=== PATIENT | female | born 1975 | race Caucasian/White ===

== ENCOUNTER 2016-09-02 21:38 | Observation (INO) | payer MEDICAID ==
[~2016-09-02] VITALS: Ht 162.6 cm; Wt 95.5 kg
[~2016-09-02 21:38] MED LIST: DEMEROL50 MG PO; ENDOCET 10-3251 TAB PO; HYDROCODON-ACE1 EAC7 PO; IBUPROFEN400 MG PO; PHENERGAN25 M1 PO
[2016-09-02 23:23] LABS: BASOPHILS 1.2 % (0-2); EOSINOPHILS 4.8 % (0-7); HEMATOCRIT 42.2 % (36.0-48.0); HEMOGLOBIN 14.1 g/dL (12-16); IMMATURE GRANULOCYTES 0.1 % (0-5); LYMPHOCYTES 40.5 % (15-50); MCHC 33.4 g/dL (31.0-37.0); MCV 92.7 fL (80.0-100.0); MEAN PLATELET VOLUME 12.5 fL (7.4-10.4); MONOCYTES 11.4 % (2-11); PLATELET COUNT 198 10x3/uL (130-400); RBC 4.55 10x6/uL (4.00-5.40); RDW 12.3 % (11.5-14.5); WBC 6.9 10x3/uL (4.8-10.8)
[2016-09-02 23:33] LABS: CALC OSMOLALITY 277 mosm/kg (275-300); CALCIUM 8.9 mg/dL (8.5-10.1); CARBON DIOXIDE 26.9 mmol/L (21.0-32.0); CHLORIDE - SERUM 106 mmol/L (98-107); CREATININE - SERUM 0.7 mg/dL (0.6-1.3); GLUCOSE 108 mg/dL (74-106); POTASSIUM - SERUM 4.9 mmol/L (3.5-5.1); SODIUM 140 mmol/L (136-145); UREA NITROGEN 7 mg/dL (7-18); eGFR NON AFRICAN AMERICAN > 90 mL/min (90-120)
[2016-09-03 00:21] VITALS: BP 143/93; Ht 162.6 cm; Wt 95.5 kg
--- NOTE | 2016-09-03 02:00 | NUR ---
PT IN BED WITH NO DISTRESS. RESPIRATIONS EVEN AND UNLABORED. SIDE RAILS X 2. BED LOW. CALL LIGHT IN REACH.
[2016-09-03 04:00] VITALS: BP 129/84
[2016-09-03 08:33] VITALS: BP 125/89
[2016-09-03 09:52] LABS: EOSINOPHILS 4.5 % (0-7); HEMATOCRIT 41.9 % (36.0-48.0); HEMOGLOBIN 13.9 g/dL (12-16); IMMATURE GRANULOCYTES 0.1 % (0-5); LYMPHOCYTES 22.5 % (15-50); MCHC 33.2 g/dL (31.0-37.0); MCV 93.5 fL (80.0-100.0); MEAN PLATELET VOLUME 12.2 fL (7.4-10.4); MONOCYTES 8.4 % (2-11); NEUTROPHILS 63.5 % (40-80); PLATELET COUNT 194 10x3/uL (130-400); RBC 4.48 10x6/uL (4.00-5.40); RDW 12.4 % (11.5-14.5)
[2016-09-03 10:15] LABS: ALBUMIN 3.6 g/dL (3.4-5.0); ANION GAP 11.1 mmol/L (8-16); BILIRUBIN - TOTAL 0.4 mg/dL (0.2-1.3); CALCIUM 8.4 mg/dL (8.5-10.1); CARBON DIOXIDE 27.7 mmol/L (21.0-32.0); PROTEIN - SERUM 7.2 g/dL (6.4-8.2)
[2016-09-03 10:16] LABS: CREATININE - SERUM 0.9 mg/dL (0.6-1.3); POTASSIUM - SERUM 3.8 mmol/L (3.5-5.1)
[2016-09-03 13:11] VITALS: BP 148/78
[2016-09-03 16:14] VITALS: BP 125/67
[2016-09-03 19:00] VITALS: BP 132/77
--- NOTE | 2016-09-03 20:00 | NUR ---
ASSESSMENT PER FLOWSHEET. IV PATENT LEFT AC SALINE LOCKED. ALERT/ORIENTED X3.HOB UP 30 DEGREES SR UP X2 CALL LIGHT WITHIN REACH.
--- NOTE | 2016-09-03 21:15 | NUR ---
MEDS GIVEN PER MAR.
--- NOTE | 2016-09-03 22:40 | NUR ---
C/O PAIN #10 TO LEFT LOWER ABDOMEN AND HEAD. STATES FEELS LIKE A KNIFE STABBING. DILAUDID 0.5MG IVP GIVEN FOR PAIN CONTROL.
[2016-09-04] VITALS: BP 118/79
--- NOTE | 2016-09-04 | NUR ---
EYES CLOSED RESPIRATIONS WITH EASE AND UNLABORED.
--- NOTE | 2016-09-04 03:44 | NUR ---
RESTING QUIETLY DENIES NEEDS AT THIS TIME.
[2016-09-04 04:00] VITALS: BP 110/77
[2016-09-04 06:03] LABS: BASOPHILS 0.7 % (0-2); EOSINOPHILS 5.5 % (0-7); HEMATOCRIT 42.7 % (36.0-48.0); HEMOGLOBIN 14.2 g/dL (12-16); IMMATURE GRANULOCYTES 0.1 % (0-5); LYMPHOCYTES 26.3 % (15-50); MCH 30.8 pg (26.0-34.0); MCHC 33.3 g/dL (31.0-37.0); MCV 92.6 fL (80.0-100.0); MEAN PLATELET VOLUME 12.8 fL (7.4-10.4); MONOCYTES 10.2 % (2-11); NEUTROPHILS 57.2 % (40-80); PLATELET COUNT 199 10x3/uL (130-400); RBC 4.61 10x6/uL (4.00-5.40); RDW 12.4 % (11.5-14.5); WBC 7.5 10x3/uL (4.8-10.8)
[2016-09-04 06:48] LABS: ALBUMIN 3.5 g/dL (3.4-5.0); ALKALINE PHOSPHATASE 60 U/L (46-116); ALT (SGPT) 17 U/L (10-68); CALC OSMOLALITY 275 mosm/kg (275-300); CALCIUM 8.4 mg/dL (8.5-10.1); CARBON DIOXIDE 26.4 mmol/L (21.0-32.0); CHLORIDE - SERUM 102 mmol/L (98-107); CREATININE - SERUM 0.8 mg/dL (0.6-1.3); GLUCOSE 95 mg/dL (74-106); POTASSIUM - SERUM 3.7 mmol/L (3.5-5.1); PROTEIN - SERUM 7.1 g/dL (6.4-8.2); SODIUM 139 mmol/L (136-145); UREA NITROGEN 6 mg/dL (7-18); eGFR NON AFRICAN AMERICAN 84 mL/min (90-120)
[2016-09-04 09:03] VITALS: BP 129/80
--- NOTE | 2016-09-04 09:07 | NUR ---
SCHEDULED MEDICATIONS ADMINISTERED AT THIS TIME. ASSESSMENT PERFORMED PER FLOWSHEET. IV TO LEFT AC TENDER, BUT PATENT. PT DENIES NEEDS AT THIS TIME. WILL CONTINUE WITH PLAN OF CARE.
[2016-09-04 12:16] VITALS: BP 124/70
--- NOTE | 2016-09-04 12:30 | NUR ---
1,000 ML SOAP SUDS ENEMA ADMINISTERED WITH RETURN OF BROWN LIQUID. WILL REPEAT.
--- NOTE | 2016-09-04 13:00 | NUR ---
700ML OF SOAP SUDS ENEMA ADMINISTERED AT THIS TIME WITH RETURN OF BROWN LIQUID WITH SMALL STOOL PARTICLES. WILL REPEAT ENEMA.
--- NOTE | 2016-09-04 13:10 | NUR ---
REFUSED THIRD ENEMA AND WOULD LIKE TO D/C HOME. IV TO LEFT AC D/C WITH CATH TIP INTACT. WILL WAIT ON HUSBANDS ARRIVAL TO D/C.
--- NOTE | 2016-09-04 14:30 | NUR ---
D/C PAPERWORK REVIEWED WITH PT BY KATYA JONES AT THIS TIME. DENIES QUESTIONS OR CONCERNS. D/C HOME WITH .
== END 2016-09-04 14:30 | disposition home or self-care (01) ==
LOC: D.ER 21:38 → D.MS 23:01 → OBSVTIME 23:01 → D.MS 23:01
PROVIDERS: Nurse Practitioner Acute Care; ADMIT Family Medicine
DX: K59.00 Constipation, unspecified (principal)

== ENCOUNTER 2017-08-01 20:21 | Emergency (ER) | payer MEDICAID ==
[2016-09-03 00:21] VITALS: BMI 36.1
[2017-08-01 21:06] LABS: BASOPHILS 0.4 % (0-2); EOSINOPHILS 1.3 % (0-7); HEMATOCRIT 40.2 % (36.0-48.0); IMMATURE GRANULOCYTES 0.2 % (0-5); LYMPHOCYTES 21.1 % (15-50); MCH 32.1 pg (26.0-34.0); MCHC 34.8 g/dL (31.0-37.0); MCV 92.2 fL (80.0-100.0); MEAN PLATELET VOLUME 11.1 fL (7.4-10.4); MONOCYTES 6.5 % (2-11); NEUTROPHILS 70.5 % (40-80); RBC 4.36 10x6/uL (4.00-5.40); RDW 12.7 % (11.5-14.5)
[2017-08-01 21:08] LABS: APPEARANCE CLEAR (CLEAR); BILIRUBIN NEGATIVE (NEGATIVE); COLOR YELLOW (YELLOW); GLUCOSE NEGATIVE (NEGATIVE); KETONE NEGATIVE (NEGATIVE); NITRITE NEGATIVE (NEGATIVE); PROTEIN NEGATIVE (NEGATIVE); SPECIFIC GRAVITY 1.015 (1.005-1.020); UROBILINOGEN NORMAL (NORMAL)
[2017-08-01 21:09] LABS: PLATELET COUNT 288 10x3/uL (130-400)
[2017-08-01 21:23] LABS: HCG SERUM NEGATIVE (NEGATIVE)
[2017-10-01] MEDS ORDERED: ATIVAN1 MG PO (12:03)
[2017-10-01] MEDS ORDERED: PROZAC20 MG PO (12:03)
[2017-10-01] MEDS ORDERED: ADDERALL 20 MG20 M1 PO (12:04)
== END 2017-08-01 23:00 | disposition home or self-care (01) ==
LOC: D.ER 20:21
PROVIDERS: Emergency Medicine
DX: R10.2 Pelvic and perineal pain (principal)

== ENCOUNTER 2017-09-09 07:25 | Emergency (ER) | payer MEDICAID ==
[2016-09-03 00:21] VITALS: BMI 36.1
[2017-09-09 08:07] LABS: BASOPHILS 0.6 % (0-2); EOSINOPHILS 2.2 % (0-7); HEMATOCRIT 38.4 % (36.0-48.0); HEMOGLOBIN 13.5 g/dL (12-16); IMMATURE GRANULOCYTES 0.2 % (0-5); LYMPHOCYTES 24.2 % (15-50); MCH 32.4 pg (26.0-34.0); MCHC 35.2 g/dL (31.0-37.0); MCV 92.1 fL (80.0-100.0); MEAN PLATELET VOLUME 11.5 fL (7.4-10.4); MONOCYTES 9.8 % (2-11); RBC 4.17 10x6/uL (4.00-5.40); RDW 13.7 % (11.5-14.5); WBC 6.5 10x3/uL (4.8-10.8)
[2017-09-09 08:11] LABS: PLATELET COUNT 222 10x3/uL (130-400)
[2017-09-09 08:16] LABS: HCG SERUM NEGATIVE (NEGATIVE)
[2017-09-09 08:22] LABS: ALBUMIN 3.8 g/dL (3.4-5.0); ALKALINE PHOSPHATASE 53 U/L (46-116); ALT (SGPT) 19 U/L (10-68); AMYLASE - SERUM 27 U/L (25-115); BILIRUBIN - TOTAL 0.54 mg/dL (0.2-1.3); CALC OSMOLALITY 276 mosm/kg (275-300); CALCIUM 8.6 mg/dL (8.5-10.1); CARBON DIOXIDE 26.7 mmol/L (21.0-32.0); CHLORIDE - SERUM 105 mmol/L (98-107); CREATININE - SERUM 0.7 mg/dL (0.6-1.3); GLUCOSE 107 mg/dL (74-106); LIPASE 140 U/L (73-393); PROTEIN - SERUM 7.4 g/dL (6.4-8.2); SODIUM 140 mmol/L (136-145); UREA NITROGEN 6 mg/dL (7-18); eGFR NON AFRICAN AMERICAN > 90 mL/min (90-120)
[2017-09-09 08:30] LABS: APPEARANCE HAZY (CLEAR); BACTERIA FEW /hpf (NONE SEEN); BILIRUBIN NEGATIVE (NEGATIVE); COLOR YELLOW (YELLOW); EPITHELIAL CELLS RARE /hpf (0-5); GLUCOSE NEGATIVE (NEGATIVE); KETONE NEGATIVE (NEGATIVE); NITRITE NEGATIVE (NEGATIVE); PROTEIN NEGATIVE (NEGATIVE); UROBILINOGEN NORMAL (NORMAL); WHITE CELLS - URINE RARE /hpf (0-5)
[2017-10-01] MEDS ORDERED: PROZAC20 MG PO (12:03)
[2017-10-01] MEDS ORDERED: ATIVAN1 MG PO (12:03)
[2017-10-01] MEDS ORDERED: ADDERALL 20 MG20 M1 PO (12:04)
== END 2017-09-09 10:50 | disposition home or self-care (01) ==
LOC: D.ER 07:25
PROVIDERS: Family Medicine
DX: N93.8 Other specified abnormal uterine and vaginal bleeding (principal); D25.9 Leiomyoma of uterus, unspecified; N83.202 Unspecified ovarian cyst, left side; N83.201 Unspecified ovarian cyst, right side

== ENCOUNTER 2017-10-02 07:45 | Inpatient (IN) | payer MEDICAID ==
[2017-10-01 13:06] LABS: BASOPHILS 0.7 % (0-2); EOSINOPHILS 0.7 % (0-7); HEMATOCRIT 40.9 % (36.0-48.0); HEMOGLOBIN 14.2 g/dL (12-16); IMMATURE GRANULOCYTES 0.1 % (0-5); LYMPHOCYTES 16.8 % (15-50); MCH 32.3 pg (26.0-34.0); MCHC 34.7 g/dL (31.0-37.0); MEAN PLATELET VOLUME 11.8 fL (7.4-10.4); MONOCYTES 8.6 % (2-11); NEUTROPHILS 73.1 % (40-80); PLATELET COUNT 255 10x3/uL (130-400); RDW 12.6 % (11.5-14.5); WBC 10.1 10x3/uL (4.8-10.8)
[2017-10-01 13:33] LABS: CALC OSMOLALITY 276 mosm/kg (275-300); CALCIUM 8.9 mg/dL (8.5-10.1); CARBON DIOXIDE 27.9 mmol/L (21.0-32.0); CHLORIDE - SERUM 104 mmol/L (98-107); CREATININE - SERUM 0.8 mg/dL (0.6-1.3); GLUCOSE 92 mg/dL (74-106); POTASSIUM - SERUM 3.5 mmol/L (3.5-5.1); SODIUM 140 mmol/L (136-145); UREA NITROGEN 7 mg/dL (7-18); eGFR NON AFRICAN AMERICAN 83 mL/min (90-120)
[2017-10-02] VITALS (10 sets, daily range): BP systolic 116–145; BP diastolic 68–93; Ht 162.6 cm; Wt 90.9 kg
[~2017-10-02] VITALS: Ht 162.6 cm; Wt 90.9 kg
--- NOTE | ~2017-10-02 | DS ---
PATIENT:MARCELLUS GALLEGOS :73 MEDICAL RECORD: [id number] DISCHARGE SUMMARY ADMISSION DATE: 10/02/17 DISCHARGE DATE: 10/04/17 DATE OF ADMISSION: 10/02/2017 DATE OF DISCHARGE: 10/04/2017 ADMISSION DIAGNOSES: 1. Dysfunctional uterine bleeding. 2. Leiomyomata uteri. DISCHARGE DIAGNOSES: 1. Dysfunctional uterine bleeding. 2. Leiomyomata uteri. PROCEDURE PERFORMED: [facility] with [facility]. ATTENDING: Vaibhav Ellison MD HISTORY OF PRESENT ILLNESS: See H&P in the chart. SUMMARY OF HOSPITALIZATION: The patient was admitted to the hospital and underwent procedure. On postoperative day #1, the patient still had trouble with some pain issues and Toradol was added to her regimen. By the end of postoperative day #1, she is tolerating regular diet and voiding. There is adequate pain control by the end of the day; however, the patient lives greater than an hour [place] a half away and has expressed concern to being discharged. The patient is held over until the following morning where she is doing well, afebrile, and continues to tolerate a regular diet and void without issue. Precautions have been reviewed with the patient. She is discharged home on Percocet and Motrin for pain management. TRANSINT:[id number] Voice Confirmation ID: [id number] DOCUMENT ID: [id number] VAIBHAV ELLISON MD at 1144 CC: [id number] DICTATION DATE: 10/04/17 0703 LABORATORY TECHNICIAN: 10/04/17 0804 DIS IN 10/04/17 [place] [id number] [place] [id number]
[~2017-10-02 07:45] MED LIST changes: +ADDERALL 20 MG20 M1 PO; +ATIVAN1 MG PO; +PROZAC20 MG PO
[2017-10-03] VITALS (7 sets, daily range): BP systolic 108–133; BP diastolic 64–82
[2017-10-04 05:10] VITALS: BP 122/77
[2017-10-04] MEDS ORDERED: PERCOCET 5-3251 TAB PO (07:38)
[2017-10-04] MEDS ORDERED: IBUPROFEN800 MG PO (07:38)
[2017-10-04 08:14] VITALS: BP 122/80
== END 2017-10-04 12:32 | disposition home or self-care (01) | DRG 743 ==
LOC: D.OPS 07:45 → D.PAN 08:45 → D.OPS 09:30 → D.WS 14:19 → D.OPS 14:20 → D.WS 14:20 → D.LD 10-03 18:21
PROVIDERS: Obstetrics & Gynecology
PROC: 0UT7FZZ Resection of Bilateral Fallopian Tubes, Via Natural or Artificial Opening With Percutaneous Endoscopic Assistance (ICD-10-PCS; 2017-10-02)
PROC: 0UT9FZZ Resection of Uterus, Via Natural or Artificial Opening With Percutaneous Endoscopic Assistance (ICD-10-PCS; principal; 2017-10-02 10:15)
PROC: 0UT2FZZ Resection of Bilateral Ovaries, Via Natural or Artificial Opening With Percutaneous Endoscopic Assistance (ICD-10-PCS; 2017-10-02 10:15)
DX: N93.8 Other specified abnormal uterine and vaginal bleeding (principal); D25.9 Leiomyoma of uterus, unspecified

== ENCOUNTER 2017-12-03 12:54 | Emergency (ER) | payer MEDICAID ==
[~2017-12-03] VITALS: Ht 162.6 cm; Wt 84.1 kg
[~2017-12-03 12:54] MED LIST changes: +IBUPROFEN800 MG PO; +PERCOCET 5-3251 TAB PO
[2017-12-03 13:00] VITALS: Ht 162.6 cm; Wt 84.1 kg
[2017-12-03] MEDS ORDERED: MECLIZINE HCL25 MG PO (13:02)
[2017-12-03] MEDS ORDERED: ZESTORETIC 10/11 TAB PO (13:02)
[2017-12-03] MEDS ORDERED: HYDROCODONE-APA1 TAB PO (13:03)
[2017-12-03] MEDS ORDERED: XANAX2 MG (13:04)
[2017-12-03] MEDS ORDERED: COZAAR25 MG (13:04)
[2017-12-03] MEDS ORDERED: DEPAKOTE ER250 MG (13:04)
[2017-12-03] MEDS ORDERED: ADDERALL 20 MG20 M1 PO (13:04)
[2017-12-03] MEDS ORDERED: DYAZIDE 37.5/251 CAP PO (13:05)
[2017-12-03 13:33] LABS: BASOPHILS 0.6 % (0-2); EOSINOPHILS 0.8 % (0-7); HEMATOCRIT 38.5 % (36.0-48.0); IMMATURE GRANULOCYTES 0.2 % (0-5); LYMPHOCYTES 36.3 % (15-50); MCH 31.1 pg (26.0-34.0); MCHC 33.8 g/dL (31.0-37.0); MCV 92.1 fL (80.0-100.0); MEAN PLATELET VOLUME 12.5 fL (7.4-10.4); MONOCYTES 8.2 % (2-11); NEUTROPHILS 53.9 % (40-80); RBC 4.18 10x6/uL (4.00-5.40); WBC 6.6 10x3/uL (4.8-10.8)
[2017-12-03 13:36] LABS: PLATELET COUNT 199 10x3/uL (130-400)
[2017-12-03 13:55] LABS: ALBUMIN 3.5 g/dL (3.4-5.0); ALKALINE PHOSPHATASE 65 U/L (46-116); ALT (SGPT) 20 U/L (10-68); BILIRUBIN - TOTAL 0.43 mg/dL (0.2-1.3); CALC OSMOLALITY 288 mosm/kg (275-300); CALCIUM 8.8 mg/dL (8.5-10.1); CARBON DIOXIDE 31.6 mmol/L (21.0-32.0); CHLORIDE - SERUM 108 mmol/L (98-107); CREATININE - SERUM 0.7 mg/dL (0.6-1.3); GLUCOSE 97 mg/dL (74-106); POTASSIUM - SERUM 3.7 mmol/L (3.5-5.1); PROTEIN - SERUM 6.9 g/dL (6.4-8.2); SODIUM 146 mmol/L (136-145); UREA NITROGEN 7 mg/dL (7-18); eGFR NON AFRICAN AMERICAN > 90 mL/min (90-120)
[2017-12-03 14:31] LABS: APPEARANCE HAZY (CLEAR); BILIRUBIN NEGATIVE (NEGATIVE); COLOR YELLOW (YELLOW); GLUCOSE NEGATIVE (NEGATIVE); KETONE NEGATIVE (NEGATIVE); NITRITE NEGATIVE (NEGATIVE); PROTEIN NEGATIVE (NEGATIVE); SPECIFIC GRAVITY 1.015 (1.005-1.020); UROBILINOGEN NORMAL (NORMAL)
[2017-12-03] MEDS ORDERED: VISTARIL25 MG PO (16:25)
[2017-12-03] MEDS ORDERED: ZOFRAN ODT4 MG/UDTAB PO (16:25)
[2017-12-03 17:12] VITALS: BP 154/89
== END 2017-12-03 17:30 | disposition home or self-care (01) ==
LOC: D.ER 12:54
PROVIDERS: Family Medicine
DX: R42 Dizziness and giddiness (principal); I10 Essential (primary) hypertension